=== PATIENT | female | born 1995 | race Caucasian/White ===

== ENCOUNTER 2024-02-05 10:28 | Emergency (ER) | payer MEDICAID, SELFPAY ==
[2024-02-05 10:38] VITALS: BP 132/77; PULSE 77; RESP 16; TEMP 36.1; O2SAT 98; BMI 43.3
--- NOTE | 2024-02-05 11:00 | ED.GENADULT ---
HPI - General Adult General Date Seen: 02/05/24 Chief complaint: Extremity Pain/Injury, Lower Stated complaint: RT foot injury Time Seen by Provider: 02/05/24 10:54 History of Present Illness HPI narrative: Very pleasant generally healthy 28-year-old female presenting to the ER today for pain in her right heel. She had an injury to the back of her right heel 3 or 4 days ago where she banged the back of her heel against a rocking chair. She has been having pain in the back of her right heel ever since then. Pain gets worse when she walks but still hurts even when she is not walking on. She was able to sleep last night when she woke up this morning her heel is hurting even more. She decided not to ignore it anymore in come and get it checked out. She has not had anything swollen. No redness. No bruising. There is no pain radiating up into her Achilles tendon or in her calf. No ankle pain. She does have some longstanding pain on the lateral aspect of her right midfoot but that is not changed from baseline. No previous history of Achilles tendon injury or calcaneus injury. No history of arthritis. As long as she is resting her foot, although it is mildly painful, she declines pain meds. Related Data Home Medications ?Medication ?Instructions ?Recorded ?Confirmed omeprazole 20 mg capsule,delayed 20 mg PO DAILY 02/05/24 02/05/24 release venlafaxine 75 mg tablet 75 mg PO DAILY 02/05/24 02/05/24 Allergies Allergy/AdvReac Type Severity Reaction Status Date / Time azithromycin Allergy Intermediate Rash Verified 02/05/24 10:42 [facility] [place] Social History Smoking Status: Current some day smoker Do you use any of these nicotine containing products: None Non-prescribed substance use: marijuana (any form) Exam Narrative: Exam Narrative: Constitutional: Appears well-developed and well-nourished. Active. Polite. Nontoxic. HENT: Head: Atraumatic. No signs of injury. Nose: No nasal discharge. Mouth/Throat: Mucous membranes are moist. No trismus. Eyes: Conjunctivae normal and EOM are normal. Pupils are equal, round, and reactive to light. Right eye exhibits no discharge. Left eye exhibits no discharge. No icterus. Neck: Normal range of motion. Neck supple. No adenopathy. No stridor. Cardiovascular: Normal rate and regular rhythm. No murmur heard. No murmurs, rubs, or gallops. Brisk capillary refill symmetric DP and PT artery pulses. Pulmonary/Chest: Effort normal. No stridor. No respiratory distress. No wheezes.No rhonchi. No rales. No retractions. Musculoskeletal: Normal range of motion in her right hip, knee, ankle. She has normal plantar flexion and dorsiflexion of the ankle but has heel pain when she dorsiflexes her ankle. Knee: Normal inspection. No tenderness. No tenderness of the proximal fibula or tibia. Byrd-normal. Gastroc and soleus nontender. Achilles tendon nontender. No tendon defect. Normal Sullivan test. Ankle: No tenderness of the medial or lateral malleolus bony malleolus. Foot: Normal inspection. No bruising. No redness. No swelling. She is tender on the posterior calcaneus. No crepitus there. Mild tenderness over the base of the 5th metatarsal which the patient says is chronic. No crepitus. No redness. No bruising. Otherwise midfoot and forefoot are nontender.. No deformity. Neurological: Alert. Normal strength. No cranial nerve deficit or sensory deficit. Coordination normal. GCS eye subscore is 4. GCS verbal subscore is 5. GCS motor subscore is 6. Intact distal sensory function in the medial and lateral foot, sole of the foot, dorsal 1st webspace. Skin: Skin is warm. No rash noted. Const: Vital Signs, click to edit/add: Vital Signs - 24 hr 02/05/24 10:38 Temperature 97.0 F L Pulse Rate [Pulse Oximeter] 77 Respiratory Rate 16 Blood Pressure [Ri t Upper Arm] 132/77 Pulse Oximetry 98 Oxygen Delivery Me thod Room Air Course Vital Signs Vital signs: Initial Vital Signs Temperature 97.0 F L 02/05/24 10:38 Temperature Source Temporal Artery Scan 02/05/24 10:38 Pulse Rate 77 02/05/24 10:38 Respiratory Rate 16 02/05/24 10:38 Blood Pressure 132/77 02/05/24 10:38 Blood Pressure Mean 95 02/05/24 10:38 Blood Pressure Position Sitting 02/05/24 10:38 Pulse Oximetry 98 02/05/24 10:38 Oxygen Delivery Method Room Air 02/05/24 10:38 Vital Signs Temperature 97.0 F L 02/05/24 10:38 Pulse Rate 77 02/05/24 10:38 Respiratory Rate 16 02/05/24 10:38 Blood Pressure 132/77 02/05/24 10:38 Pulse Oximetry 98 02/05/24 10:38 Oxygen Delivery Method Room Air 02/05/24 10:38 Temperature 97.0 F L 02/05/24 10:38 Pulse Rate 77 02/05/24 10:38 Respiratory Rate 16 02/05/24 10:38 Blood Pressure 132/77 02/05/24 10:38 Pulse Oximetry 98 02/05/24 10:38 Oxygen Delivery Method Room Air 02/05/24 10:38 Medical Decision Making MDM Narrative Medical decision making narrative: Pleasant 28-year-old female presenting to the ER today for pain on the posterior aspect of her right heel/calcaneus. She did Bang her heel against a rocking chair several days ago and has been having pain since then. X-rays are obtained and are fortunately negative for any fracture of the calcaneus. Clinical exam does not show any evidence for Achilles tendon rupture. She is tender on the posterior calcaneus so this could be possibly an contusion or little bit of inflammation at the insertion pain ES. X-rays of the foot are negative for any fracture. No evidence for any ankle injury. She is neurovascularly intact. No evidence for infection, DVT, compartment syndrome, acute limb ischemia. Plan of care will be to rest as much as possible. Patient does not think crutches of be helpful with her house and home situation. Weight-bearing as tolerated. Elevate when possible. Ibuprofen 600 mg t.i.d.. Tylenol for additional analgesia. If not improving within 5-7 days follow up with [facility] ortho clinic. Imaging Data XR foot: Attestation: I have reviewed the pertinent imaging results. Radiologist's impression: IMPRESSION: Small bony enthesophyte at the Achilles tendon insertion onto the calcaneus. Otherwise, normal right foot radiographs. XR calcaneus: Attestation: I have reviewed the pertinent imaging results. Radiologist's impression: IMPRESSION: No acute appearing or traumatic findings in the right calcaneus or hindfoot. Discharge Plan Discharge Clinical Impression: Heel pain Patient Disposition: Home, Self-Care Condition: Stable Instructions: Achilles Tendinitis (ED), Arthralgia (ED) Additional Instructions: As we discussed, your x-rays look good. Nothing broken in your foot or heel bone. At this point no signs of an Achilles tendon rupture. I suspect her pain is probably due either to a bruise of the soft tissue and bone anterior calcaneus or possibly some inflammation where the Achilles tendon attaches 2 year heel bone. Try to keep her foot elevated when you can, but it is okay to walk and bear weight on your heel. Avoid long running or other extended periods of walking. To treat the pain use ibuprofen 600 mg 3 times a day. You can add acetaminophen if needed. If you are not improving within 5-7 days, please follow-up with the [facility] Orthopedic Department. You can call [phone] schedule a and ER follow-up visit. If you have any worsening symptoms or new redness or swelling of your heel, or worsening pain, please come back to the ER right away to be rechecked. Prescriptions: No Action venlafaxine 75 mg tablet 75 mg PO DAILY omeprazole 20 mg capsule,delayed release(DR/EC) 20 mg PO DAILY Follow Up/Referrals: Kailyn Matta MD [Primary Care Provider] - Stand Alone Forms: [employer] Instructions
--- NOTE | 2024-02-05 11:01 | CRLHL7_ITS ---
For Patients: As a result of the Century Cures Act, medical imaging exams and procedure reports are released immediately into your electronic medical record. You may view this report before your referring provider. If you have questions, please contact your health care provider. INDICATION: Foot pain, heel pain COMPARISON: None. TECHNIQUE: Three views right foot FINDINGS: No fracture. Tiny enthesophyte at the Achilles insertion onto the calcaneus. The Achilles tendon does not appear to be thickened or irregular and there is not any edema in the pre Achilles fat pad. Normal alignment. Joint spaces are normal. No focal bone lesions. Normal bone mineralization. Soft tissues are normal. No foreign body. IMPRESSION: Small bony enthesophyte at the Achilles tendon insertion onto the calcaneus. Otherwise, normal right foot radiographs. Dictated by Julissa Stevenson MD @ 02/05/2024 12:08:32 PM (Electronically Signed)
--- NOTE | 2024-02-05 11:01 | CRLHL7_ITS ---
For Patients: As a result of the Century Cures Act, medical imaging exams and procedure reports are released immediately into your electronic medical record. You may view this report before your referring provider. If you have questions, please contact your health care provider. INDICATION: Foot pain, heel pain, blunt trauma COMPARISON: Same day foot radiographs TECHNIQUE: Two views right calcaneus FINDINGS: No fracture. Tiny enthesophyte at the Achilles insertion onto the calcaneus. The Achilles tendon does not appear to be thickened or irregular and there is not any edema in the pre Achilles fat pad. Normal alignment. Joint spaces are normal. No focal bone lesions. Normal bone mineralization. Soft tissues are normal. No foreign body. IMPRESSION: No acute appearing or traumatic findings in the right calcaneus or hindfoot. Dictated by Julissa Stevenson MD @ 02/05/2024 12:09:15 PM (Electronically Signed)
== END 2024-02-05 12:36 | disposition home or self-care (01) ==
PROVIDERS: Emergency Provider Emergency Medicine; PCP Student in an Organized Health Care Education/Training Program
DX: M79.671 Pain in right foot (principal)
CPT/HCPCS: 73630; 73650; 99282; 99284

== ENCOUNTER 2024-09-29 17:00 | Outpatient (RCR) | payer MEDICAID, SELFPAY | END 2024-11-23 10:57 | disposition home or self-care (01) | PROVIDERS: PCP Student in an Organized Health Care Education/Training Program; Visit Provider Student in an Organized Health Care Education/Training Program | DX: M79.7 Fibromyalgia (principal); F32.A Depression, unspecified; N94.19 Other specified dyspareunia; Z51.89 Encounter for other specified aftercare | CPT/HCPCS: 97110; 97140; 97161 ==

== ENCOUNTER 2025-03-28 08:15 | Emergency (ER) | payer MEDICAID, SELFPAY ==
--- OUTSIDE RECORDS SUMMARY | 2025-03-28 08:18 | XMS_ITS | Clinical Summary ---
Author Organization [employer] [facility] Address [address] [place] [id number] Care Team Providers Care Welding Lead Burner Name Role Phone Amrita Watson SPORTS ATTORNEY Unavailable [phone] Kailyn Matta MD Primary Care Prov ider Allergies Active Allergy Reactions Criticality Noted Date Comments Azithromycin (Bulk) Rash 12/30/2023 Medications hyoscyamine (LEVBID) 0.375 mg Controlled-Release tabletIndications: Irritable bowel syndrome, unspecified type Take 1 Tablet (0.375 mg) by mouth every 12 hours if needed (GI issues). 30 Tablet 3 01/02/20 24 Active cholestyramine-suc bill 4 G per scoop (QUESTRAN) 4 gram powderIndications: Irritable bowel syndrome, unspecified type Mix 1 Packet in liquid then take by mouth two times daily. 02/11/20 24 Active CPAPIndications:[facility] sleep apnea CPAP (E0601) machine for home use at pressure: 4-11 , Choice of mask (A7030 or A7034) w/full face cushion (A7031) x2/mo, nasal cushion (A7032) x2/mo, or nasal pillows (A7033) x 2/mo; Length of Need: 99 months; Frequency of use: Daily 1 Each 3 10/26/19 25 Active methylPREDNISolone (Medrol (Daniele)) 4 mg tabletIndications: Chronic SI joint pain Take by mouth as instructed per packaging. 21 Tablet 12/07/19 25 Active dextroamphetamine- amphetamine (Adderall XR) 20 mg Extended-Release capsuleIndications :Attention deficit hyperactivity disorder (ADHD), unspecified ADHD type Take 1 Capsule (20 mg) by mouth once daily. 30 Capsule 02/23/20 25 Active pregabalin 75 mg capsuleIndications :Other chronic pain,Chronic nonintractable headache, unspecified headache type,Fibromyalgia, Functional dyspareunia,Chroni c right-sided low back pain without sciatica Take 1 Capsule (75 mg) by mouth two times daily. 180 Capsule 3 12/07/19 25 Active venlafaxine 75 mg cp24 Extended-Release capsuleIndications :Depression, unspecified depression type Take 1 Capsule (75 mg) by mouth once daily with a meal. 90 Capsule 3 12/07/19 25 Active omeprazole (PRILOSEC) 20 mg Delayed-Release capsuleIndications :Chronic GERD Take 1 Capsule (20 mg) by mouth once daily before a meal. 90 Capsule 3 02/24/20 25 Active methylphenidate HCl (Ritalin) 10 mg tabletIndications: Attention deficit hyperactivity disorder (ADHD), predominantly inattentive type Take 1 Tablet (10 mg) by mouth once daily in the afternoon. As needed 30 Tablet 03/25/20 25 025 Active methylphenidate HCl (Ritalin) 10 mg tabletIndications: Attention deficit hyperactivity disorder (ADHD), predominantly inattentive type Take 1 Tablet (10 mg) by mouth once daily in the afternoon. As needed 30 Tablet 04/24/20 25 Active dextroamphetamine- amphetamine (Adderall XR) 20 mg Extended-Release capsuleIndications :Attention deficit hyperactivity disorder (ADHD), predominantly inattentive type Take 1 Capsule (20 mg) by mouth once daily. 30 Capsule 03/25/20 25 025 Active dextroamphetamine- amphetamine (Adderall XR) 20 mg Extended-Release capsuleIndications :Attention deficit hyperactivity disorder (ADHD), predominantly inattentive type Take 1 Capsule (20 mg) by mouth once daily. 30 Capsule 04/24/20 25 Active testosterone (ANDROGEL) 20.25 mg/1.25 gram (1.62 %) glpm transdermal gelIndications:gen fozia dysphoria adjunct therapy Apply 1 pump (20.25 mg) on dry, clean, hairless skin once daily in the morning. To clean, dry, intact skin of the shoulders and upper arms. Do NOT apply to any other parts of the body. 75 g 02/24/20 25 Active methylphenidate HCl (Ritalin) 10 mg tabletIndications: Attention deficit hyperactivity disorder (ADHD), predominantly inattentive type Take 1 Tablet (10 mg) by mouth once daily in the afternoon. As needed 30 Tablet 02/24/20 25 025 Active Problems Problem Noted Date Diagnosed Date Cervical cancer screening 01/21/2025 Overview (01/21/2025): 12/2024 NIL/HPV negative Plan: HPV based testing in 5 years Attention deficit hyperactivity disorder (ADHD) 12/06/2024 Gender dysphoria 10/26/2024 Bilateral carpal tunnel syndrome 10/26/2024 Depression 12/30/2023 Irritable bowel syndrome 12/30/2023 Chronic pain 12/30/2023 Overview (12/30/2023): Upper back on left and lower right back. Chronic nonintractable headache 12/30/2023 Severe obstructive sleep apnea 12/30/2023 Encounters Date Type Department Care Team Description 03/08/2025 8:30 AM CDT Office Visit [facility] [address] [address] Jean Paul Cormier MD Consult (Facial masculinization ) 03/07/2025 Travel 02/23/2025 11:05 AM CDT Office Visit [facility] [address] [place] [address] Kailyn Matta MD Abdominal Pain (Follow up); Medication Management (Started Ritalin ) 02/23/2025 Travel 01/12/2025 11:30 AM CDT Office Visit [facility] [address] [place] [address] Kailyn Matta MD Party Supply Specialist Exam (Pap ); Screening (Conversation with Anushka /IBS/Back pain ); Derm Problem (left pointer finger ); Medication Management (Mid day Adderall ) 01/12/2025 Travel from Last 3 Months Immunizations Immunization Administration Dates Next Due COVID-19 VACCINE SPIKEVAX (M ODERNA 50MCG/0.5ML) 12YO+ PFS 04/12/2024 DTP 10/02/1994, 4,1993,1993 DTP-HIB 10/02/1994 DTaP 05/10/1997 HIB HbOC (HibTITER) 1993,1993,1993 HIB PRP-T (ActHIB,Hiberix) 1993,1993 ,1993 HPV 9 (Gardasil 9) 05/17/2019,02/10/2019, 019 Hepatitis A (Peds) 12/28/2004 Hepatitis B, Unspecified 1993,1993,0 1993 INFLUENZA, IIV3 PF (AGE >= 6 MO) 04/12/2024 Influenza Virus, Unspecified 07/13/2018 MMR 05/10/1997,10/02/1994 Oral Polio Vaccine 05/10/1997, 4,1993,1993 Td (Age >=7 Years) 12/28/2004 Tdap 03/06/2015 Tdap, Unspecified 08/27/2021 Varicella Vaccine 03/06/2000 Family History Medical History Relation Name Comments Alcoholism Father Cancer-breast Maternal Grandmother Cancer-breast Mother Diabetes Mother Hypertension Mother Seizures Mother Emphysema Other Lung cancer Other Diabetes Paternal Grandmother Relation Name Status Comments Father Alive Maternal Grandmother Mother Other Paternal Grandmother Social History Tobacco Use Types Packs/Day Years Used Date Smoking Tobacco: Never Smokeless Tobacco: Never Tobacco Cessation:Counseling Given: Yes Alcohol Use Standard Drinks/Week Comments Not Currently 0 (1 standard drink = 0.6 oz pur e alcohol) PHQ-2 Answer Date Recorded PHQ-2 TOTAL SCORE 1 10/26/2024 Social Connections Answer Date Recorded Do you often feel lonely or isolated from those around you? 0 01/12/2025 Financial Resource Strain Answer Date R ecorded Difficulty of Paying Living Expenses 3 01/12/2025 Difficulty of Paying Living Expenses Not on file 01/12/2025 Food Insecurity Answer Date Recorded Do you worry your food will run out before you are able to buy more? 1 01/12/2025 Transportation Needs Answer Date Record ed Does lack of transportation keep you from medica l appointments? 1 01/12/2025 Does lack of transportation keep you from work, meetings or getting things that you need? 1 01/12/2025 Housing Stability Answer Date Recorded What is your housing situation today? 1 01/12/2025 Utilities Answer Date Recorded Do you have trouble paying f or utilities (for example, heat, electricity, water, phone)? 1 01/12/2025 Comments No Sex and Gender Information Value Date Recorded Sex Assigned at Not on file Legal Sex Female 10:32 AM CDT Gender Identity Other 01/09/2024 2:34 PM CDT Sexual Orientation Bisexual 01/09/2024 2: 34 PM CDT Obstetrics History Last Filed Vital Signs Vital Sign Reading Time Taken Comments Blood Pressure 113/78 03/08/2025 8:43 AM CDT Pulse 103 03/08/2025 8:43 AM CDT Temperature 36.9 C (98.5 F) 02/23/2025 11:17 AM CDT Respiratory Rate - - Oxygen Saturation 97% 03/08/2025 8:43 AM CDT Inhaled Oxygen Concentration - - Weight 118.8 kg (262 lb) 03/08/2025 8:43 AM CDT Height 172.1 cm (5' 7.75) 03/08/2025 8:43 AM CD T Body Mass Index 40.13 03/08/2025 8:43 AM CDT Plan of Treatment Upcoming Encounters Date Type Department Care Team (Late st Contact Info) Description 04/01/2025 11:05 AM CDT Office Visit [facility] [address] [place] [address] Kailyn Matta MD [address] [place] [address] 05/25/2025 11:05 AM SAP HANA ARCHITECT Office Visit [facility] [address] [place] [address] Kailyn Matta MD [address] [place] [address] Scheduled Procedures Name Priority Associated Diagnoses Date/Ti me SURGICAL PROCEDURE (TYPE PRO CEDURE DESCRIPTION BELOW) Elective Gender dysphoria Health Maintenance Due Date Last Done Comments HIV for age 15-65 2008 Hepatitis C screening for age 18-79 2011 Influenza Vaccine (#1) 2025 04/12/2024, 2018 Depression screening for age 12+ 10/26/2025 10/26/2024, 05/10/2024, 05/07/2024, Additional history exists BMI (ht and wt on same day) for age 18+ 03/08/2026 03/08/2025, 02/11/2024 Pap test for age 21-65 01/12/2030 , 01/12/2025, 08/15/2020 (Verified in Care Everywhere or Patient Record) Tetanus booster 08/28/2031 08/27/2021, 02/15, 12/28/2004 RSV vaccine for adults or (1 - 1-dose 75+ series) 2068 Hepatitis B series for 19+ Completed 11/19, 1993, 1993 HPV series for age 9-45 Completed 05/17/20 19, 02/10/2019, 12/08/2018 HPV series for age 9-45 Completed 05/17/20 19, 02/10/2019, 12/08/2018 COVID-19 vaccine series Completed 04/12/20 24, 05/02/2023, 04/10/2022 Pneumococcal series for age 6-49 Aged Out No longer eligible based on patient's age to complete this topic Procedures Procedure Name Priority Date/Time Associated Diagnosis Comments HEMOGLOBIN Routine 02/23/2025 12:03 PM CDT Gender dysphoria TESTOSTERONE,TOTAL Routine 02/23/2025 12 :03 PM CDT Gender dysphoria TURN DOWN WORKER THIN PREP PAP SCREEN IMAGED Routine 01/12/2025 12:07 PM CDT Cervical cancer screening HPV HIGH RISK Routine 01/12/2025 12:07 PM CDT Cervical cancer screening from Last 3 Months Results * HEMOGLOBIN (02/23/2025 12:03 PM CDT) HEMOGLOBIN 13.3 11.7 - 15.5 g/dL 02/24/2025 3:36 AM CDT [facility] MCV 88.6 80.0 - 100.0 fL 02/24/2025 3:36 AM CDT [facility] Blood BLOOD SPECIMEN / Unknown [facility] / Unknown 02/23/2025 12:03 PM CDT 02/23/2025 12:03 PM CDT Kailyn Matta MD HEMATOLOGY Fi nal Result Performing Organization Address [facility] Co de Phone Number [facility] [address] [address], [place] [phone] * (ABNORMAL) TESTOSTERONE,TOTAL (02/23/2025 12:03 PM CDT) TESTOSTERONE, TOTAL, MS 63(H) 2 - 45 ng/dL 02/27/2025 10:51 PM CDT [facility] Comment: For additional information, please refer to https://education.PrivacyCentral/faq/TotalTestosteroneLCMSMS (This link is being provided for informational/educational purposes only.) (Note) This test was developed and its analytical performance characteristics have been determined by [employer]. It has not been cleared or approved by the FDA. This assay has been validated pursuant to the CLIA regulations and is used for clinical purposes. [facility] [address] [address],[address] [facility] [id number] Madhu Gooden MD, PhD Blood BLOOD SPECIMEN / Unknown [facility] / Unknown 02/23/2025 12:03 PM CDT 02/23/2025 12:03 PM CDT Kailyn Matta MD CHEMISTRY Fi nal Result Performing Organization Address City/[facility]/ZIP Co de Phone Number [facility] [address] [address], * TURN DOWN WORKER THIN PREP PAP SCREEN IMAGED (01/12/2025 12:07 PM CDT) Case Report Gynecologic Cytology Report Case: [id number] Authorizing Provider: Kailyn Matta Collected: 01/12/2025 1207 MD Concepción Ordering Location: [facility] Received: 01/12/2025 1303 Clinic First Screen: Daphne Eric Specimen: TURN DOWN WORKER ThinPrep Vial Screening, Cervical 01/19/2025 12:32 PM CDT [facility] INTERPRETATION/ RESULT NEGATIVE FOR INTRAEPITHELIAL LESION OR MALIGNANCY (NIL) (none) 01/19/2025 12:32 PM CDT [facility] at 1232 CDT SPECIMEN ADEQUACY Satisfactory for evaluation Endocervical component present 01/19/2025 12:32 PM CDT [facility] HPV REQUEST HPV and PAP 01/19/2025 12:32 PM CDT [facility] Date of LMP 09/19/2024 01/19/2025 12:32 PM CDT [facility] Last Pap Date 08/15/20 01/19/2025 12:32 PM CDT [facility] Last Pap Result NIL 12:32 PM CDT [facility] Abnormal Pap or [place] Bx in last 5 years No 01/19/2025 12:32 PM CDT [facility] Menstrual Status Regular Periods 01/19/2025 12:32 PM CDT [facility] [place] Bx Done Today No 01/19/2025 12:32 PM CDT [facility] Additional Information None given 01/19/2025 12:32 PM CDT [facility] Comment: [facility] - [address] [facility] [address] [address] and [facility] - [address], [place] [address] and [facility] - [address] [place] [address] Interpreted at [facility] Laboratory - [address], [place] [address] Automated Review Successful 01/19/2025 12:32 PM CDT [facility] Comment:Specimen processed s uccessfully by automated buildings and grounds superintendent device, ThinPrep Imaging System, [employer] ANCILLARY TESTING TURN DOWN WORKER HPV Ordered, Please see separate report 01/19/2025 12:32 PM CDT [facility] Note The pap test is a screening technique, not a diagnostic procedure. It is used primarily to screen for squamous cancers and precursor lesions. Published studies have shown that it is subject to both false negative and false positive results. The pap test should not be used as the sole means to diagnose or exclude pre-malignant and malignant lesions. 01/19/2025 12:32 PM CDT [facility] Other (Cervical) Non-Blood / Unknown 01/12/2025 12:07 PM CDT 01/12/2025 1:03 PM CDT Kailyn Matta MD PATHOLOGY/CYTOLOGY Final Result [facility] [address] [place] [address], * HPV HIGH RISK (01/12/2025 12:07 PM CDT) TYPE 16 Negative Negative 01/17/2025 4:09 PM CDT [facility] TRAL LABORATORY TYPE 18 Negative Negative 01/17/2025 4:09 PM CDT [facility] TRAL LABORATORY OTHER HIGH RISK TYPES Negative Negative 01/17/2025 4:09 PM CDT [facility] Other (Cervical) Non-Blood / Unknown 01/12/2025 12:07 PM CDT 01/13/2025 10:57 AM CDT Narrative [facility] - 01/17/2025 4:09 PM CDT HPV types 16, 18, 31, 33, 35, 39, 45, 51, 52, 56, 58, 59, 66 and 68 DNA were undetectable or below the pre-set threshold. Methodology: Jaylene Hafsa 4800 HPV Test Kailyn Matta MD MICROBIOLOGY Fi nal Result [facility] [address] [place] [address], from Last 3 Months Insurance [facility] Care Teams Welding Lead Burner Relationship Specialty Start Date End Date Kailyn Matta MD [place] [address] PCP - General Family Practice 02/23/25 Amrita Watson NP [address] [address] Sleep Medicine 03/15/24
[2025-03-28 08:19] VITALS: BP 109/57; PULSE 89; RESP 16; TEMP 36.6; O2SAT 96; BMI 43.3
[2025-03-28 08:35] LABS: Appearance Urine Clear (Clear)
--- NOTE | 2025-03-28 08:38 | ED.GENADULT ---
HPI - General Adult General Date Seen: 03/28/25 Chief complaint: Urogenital Problems, Female Stated complaint: bladder pain Time Seen by Provider: 03/28/25 08:17 History of Present Illness HPI narrative: Patient is a 29-year-old woman here for bladder pain. She says for the past couple of days she has had little twinges of bladder discomfort and dysuria but not enough that she felt she needed to do anything about it. Today symptoms are much worse. She notes dysuria, urgency. No fevers, she has had some mild nausea and dizziness which she thinks is related to pain. No flank pain but she has had some low back pain. She has some chronic low back pain but says this is different. She has a history of irritable bowel syndrome, chronic back pain, GERD. Medications reviewed. She denies any vaginal discharge, new sexual partners or concerns about exposure to STDs. No concerns for . Related Data Home Medications ?Medication ?Instructions ?Recorded ?Confirmed omeprazole 20 mg capsule,delayed 20 mg PO DAILY 02/05/24 03/28/25 release venlafaxine 75 mg tablet 75 mg PO DAILY 02/05/24 03/28/25 dextroamphetamine-amphetamine ER 1 cap PO DAILY 10/15/24 03/28/25 10 mg 24hr capsule,extend release pregabalin 75 mg capsule 75 mg PO BID 10/15/24 03/28/25 Allergies Allergy/AdvReac Type Severity Reaction Status Date / Time azithromycin Allergy Intermediate Rash Verified 10/28/24 10:11 Review of Systems Status of ROS: Reports: 6 or more systems reviewed and unremarkable except as noted in History and below PFSH PFS Social History Smoking Status: Current some day smoker Do you use any of these nicotine containing products: None How often do you have a drink containing alcohol: monthly or less AUDIT-C Alcohol total score: 1 Non-prescribed substance use: marijuana (any form) Exam Narrative: Exam Narrative: Vital signs reviewed In general, alert, nontoxic young woman. Looks comfortable. Head: Normocephalic, atraumatic. Eyes: Sclera clear. Pupils equal and reactive. ENT: Mucous membranes moist. Neck: Supple without adenopathy. Heart: Regular rate and rhythm without murmur. Lungs: Clear. No increased work of breathing, crackles or wheezes. Abdomen: Soft, nontender to palpation. No CVA tenderness. Extremities: Well perfused, pulses intact. No significant edema. Neurologic: Alert, conversant. Speech fluent, face symmetric. Moves all extremities equally. Skin: Warm, dry well perfused. Affect: Normal. Const: Vital Signs, click to edit/add: Vital Signs - 24 hr 03/28/25 08:19 Temperature 98 F Pulse Rate [Pulse Oximeter] 89 Respiratory Rate 16 Blood Pressure [Ri ght Upper Arm] 109/57 L Pulse Oximetry 96 Oxygen Delivery Me thod Room Air Course Course ED Course: Will check a UA, abdominal exam is entirely benign and nontender. At this time more considerable workup does not seem to be indicated, will see her UA looks. UA was negative, there was some bacteria in it but also significant number of squamous cells indicating likely contamination. No significant red or white cells. We did a vaginitis panel as well and this is negative. At this time, she is feeling improved, abdominal exam remains benign. Discussed additional workup which she does not feel is necessary right now, I think it would be reasonable to have her push hydration, use azo or Uristat if needed for dysuria and then follow up with primary care, she has an appointment later this week artery scheduled. If she is remaining symptomatic then other evaluation may be warranted. Discussed reasons to return such as worsening or severe persistent pain, fevers, vomiting, etc.. To comfortable that plan. Vital Signs Vital signs: Initial Vital Signs Temperature 98 F 03/28/25 08:19 Temperature Source Temporal Artery Scan 03/28/25 08:19 Pulse Rate 89 03/28/25 08:19 Respiratory Rate 16 03/28/25 08:19 Blood Pressure 109/57 L 03/28/25 08:19 Blood Pressure Mean 74 03/28/25 08:19 Blood Pressure Position Sitting 03/28/25 08:19 Pulse Oximetry 96 03/28/25 08:19 Oxygen Delivery Method Room Air 03/28/25 08:19 Vital Signs Temperature 98 F 03/28/25 08:19 Pulse Rate 89 03/28/25 08:19 Respiratory Rate 16 03/28/25 08:19 Blood Pressure 109/57 L 03/28/25 08:19 Pulse Oximetry 96 03/28/25 08:19 Oxygen Delivery Method Room Air 03/28/25 08:19 Temperature 98 F 03/28/25 08:19 Pulse Rate 89 03/28/25 08:19 Respiratory Rate 16 03/28/25 08:19 Blood Pressure 109/57 L 03/28/25 08:19 Pulse Oximetry 96 03/28/25 08:19 Oxygen Delivery Method Room Air 03/28/25 08:19 Medical Decision Making Lab Data Labs: Lab Results 03/28/25 03/28/25 Range/Units 08:46 Unknown Urine Color Yellow (Yellow) Urine Appearance Clear (Clear) Urine pH 8.0 (5.0-8.5) Ur Specific [place] 1.020 (1.000-1.030) Urine Protein Negative (Negative) Urine Glucose (UA) Negative (Negative) Urine Ketones Negative (Negative) Urine Blood Negative (Negative) Urine Nitrite Negative (Negative) Urine Bilirubin Negative (Negative) Urine Urobilinogen 0.2 (0.2-1.0) Ur Leukocyte Esterase Negative (Negative) Urine RBC 0-2 (0-2) Urine WBC 0-2 (0-5) Ur Squamous Epith Cells Moderate A (None-Few) Urine Bacteria Moderate A (None) Vaginal Bacterial Vaginosis Negative (Negative) Vaginal Sil species NOT DETECTED (No Detected) Vag C. glabrata/krusei NOT DETECTED (No Detected) Vag T. vaginalis NOT DETECTED (No Detected) Discharge Plan Discharge Clinical Impression: Dysuria Patient Disposition: Home, Self-Care Condition: Improved Instructions: Dysuria (ED) Additional Instructions: Push fluids for the next couple of days. He can use azo/Uristat if you would like to see if that helps with symptoms. Follow up on Friday in clinic as planned. If you are worsening, have persistent severe pain, fevers, vomiting or other new symptoms, return to the ER at any time for re-evaluation. Prescriptions: No Action dextroamphetamine-amphetamine 10 mg capsule,extended release 24hr 1 cap PO DAILY pregabalin 75 mg capsule 75 mg PO BID venlafaxine 75 mg tablet 75 mg PO DAILY omeprazole 20 mg capsule,delayed release(DR/EC) 20 mg PO DAILY Follow Up/Referrals: Kailyn Matta MD [Primary Care Provider, Family Practice] Stand Alone Forms: [employer] Info Instructions
[2025-03-28 10:28] LABS: Bacterial Vaginosis* Negative (Negative); Candida glab/krus NOT DETECTED (No Detected)
== END 2025-03-28 10:40 | disposition home or self-care (01) ==
PROVIDERS: Emergency Provider Emergency Medicine; PCP Student in an Organized Health Care Education/Training Program
DX: R30.0 Dysuria (principal)
CPT/HCPCS: 81001; 81513; 87086; 87481; 87661; 99283; 99284